=== PATIENT | female | born 1955 | race Two or more races ===

== ENCOUNTER 2017-01-05 07:05 | Emergency (ER) | payer BC ==
[2017-01-05 07:11] VITALS: BMI 25.4
--- NOTE | 2017-01-05 07:37 | PDOC ---
History of Present Illness - General Chief Complaint: Allergic Reaction Stated Complaint: BODY RASH Time Seen by Provider: 01/05/17 07:31 History Source: Patient - History of Present Illness Initial Comments: 01/05/17 08:23 CC: Acute onset of rash Patient is a 61 y.o. female with a PMH of HTN and NIDDM who presents to our ED this morning c/o a full body rash that started yesterday evening. Patient states she ate 3 cookies from a friend and noticed a rash on her arm within 30 minutes. Patient states the rash spread to her chest, other arm and lower extremities. Patient c/o of associated pruritus but no shortness of breath or associated pain. Surgical Hx: none PMD: Dr. Kirsten THOMPSON Social: (-) nicotine, (+) alcohol: 1-2 mixed alcoholic drinks/monthly, (-) marijuana/cocaine/heroin Past History - Past Medical History Allergies/Adverse Reactions: Allergies Allergy/AdvReac Type Severity Reaction Status Date / Time No Known Allergies Allergy Verified 01/05/17 07:10 Home Medications: Ambulatory Orders Diphenhydramine HCl [Benadryl -] 25 mg PO Q6H #28 capsule 01/05/17 Epinephrine (Epi-Pen 0.3MG) [Epipen 0.3MG -] 0.3 mg IM ASDIR #2 pens 01/05/17 Diabetes: Yes HTN: Yes - Suicide/Smoking/Psychosocial Hx Smoking History: Never smoked Information on smoking cessation initiated: No Hx Alcohol Use: No Drug/Substance Use Hx: No Substance Use Type: None Review of Systems - Review of Systems Constitutional: No: Chills, Fever HEENTM: No: Blurred Vision, Double Vision, Tinnitus, Throat Swelling Respiratory: No: Cough, Shortness of Breath Cardiac (ROS): No: Chest Pain, Palpitations ABD/GI: No: Constipated, Diarrhea, Nausea, Vomiting : No: Burning, Dysuria, Frequency Integumentary: Yes: Pruritus, Rash Neurological: No: Headache, Tingling Psychiatric: No: Anxiety, Depression All Other Systems: Reviewed and Negative *Physical Exam - Vital Signs Last Vital Signs Temp Pulse Resp BP Pulse Ox 97.7 F 83 19 157/103 99 01/05/17 07:08 01/05/17 07:08 01/05/17 07:08 01/05/17 07:08 01/05/17 07:08 - Physical Exam General Appearance: Yes: Nourished, Appropriately Dressed HEENT: positive: EOMI Neck: positive: Trachea midline Respiratory/Chest: positive: Lungs Clear, Normal Breath Sounds Cardiovascular: positive: Regular Rhythm, Regular Rate, S1, S2 Integumentary: positive: Other (0.25-0.5 cm macular papular rash on B/L LE, UE, chest, back and buttocks; no palm/sole involvement) Neurologic: positive: Fully Oriented, Alert Medical Decision Making - Medical Decision Making 01/05/17 08:30 Patient is a 61 y.o. female who presents with a full body rash (palm and sole sparing) with associated puritius which started shortly after food ingestion. PLAN: 1. IV Benadryl Patient's rash improved considerably following administration of IV Benadryl. Patient discharged with follow up with Dr. Leo Bradshaw (chief security and safety officer) as well we a prescription for Benadryl and an Epinephrine pen (PRN for dyspnea/throat swelling). As patient is NIDDM, a decision was made to withhold any steroid treatment at this time. Patient counseled to return to ED within 2-3 days if symptoms do not completely resolve with PO Benadryl. *DC/Admit/Observation/Transfer Diagnosis at time of Disposition: Allergy - Discharge Dispostion Disposition: HOME Condition at time of disposition: Good Admit: No - Prescriptions Prescriptions: Diphenhydramine HCl [Benadryl -] 25 mg PO Q6H #28 capsule Epinephrine (Epi-Pen 0.3MG) [Epipen 0.3MG -] 0.3 mg IM ASDIR #2 pens - Referrals Referrals: Leo Curtis [Primary Care Provider] - Leo Bradshaw MD [Staff Physician] - - Patient Instructions Printed Discharge Instructions: DI for General Allergic Reactions Additional Instructions: You were evaluated and treated today for an allergic reaction. Your discharge instructions are as follows: (1) Please take Benadryl every 4 hours as needed. Should your rash not get better or your itching return in 2-3 days, please return to the Emergency Department for further evaluation. (2) In the unlikely case you become short of breath or feel as if your throat is swelling please use the Epinephrine pen immediately. Please carry the pen with you until your symptoms completely resolve. (3) Referral information has been provided for Dr. Leo Bradshaw, an chief security and safety officer, please make an appointment for full evaluation within 1-2 weeks
[2017-01-05] MEDS ORDERED: diphenhydrAMINE HCL 12.5 MG/5 ML UNIT-DOSE CUPS PO ONE (07:44)
--- NOTE | 2017-01-05 08:31 | PDOC ---
Attending Attestation - Resident Resident Name: CarlottaMarli - ED Attending Attestation I have performed the following: I have examined & evaluated the patient, The case was reviewed & discussed with the resident, I agree w/resident's findings & plan, Exceptions are as noted - HPI HPI: 01/05/17 08:28 61-year-old female with no past medical history of HTN, DM presents with diffuse macular papular rash. Denies other symptoms. Denies chest pain or shortness of breath or facial swelling or throat swelling. Denies difficulty breathing. Patient noted it earlier this morning. She reports she ate a cookie last night but does not know the contents of it. She incidentally notes that 8 days ago she had a flu and pneumonia vaccine but had no symptoms since then. Came into the ED for further evaluation. Patient is ready given Benadryl prior to my evaluation. - Physicial Exam PE: 01/05/17 08:30 GENERAL: Awake, alert, and fully oriented, in no acute distress. HEAD: No signs of trauma EYES: PERRLA, EOMI, sclera anicteric, conjunctiva clear ENT: Auricles normal inspection, hearing grossly normal, nares patent, oropharynx clear without exudates. NECK: Normal ROM, supple, no lymphadenopathy, JVD, or masses LUNGS: Breath sounds equal, clear to auscultation bilaterally. No wheezes, and no crackles HEART: Regular rate and rhythm, normal S1 and S2, no murmurs, rubs or gallops ABDOMEN: Soft, nontender, normoactive bowel sounds. No guarding, no rebound. No masses EXTREMITIES: Normal range of motion, no edema. No clubbing or cyanosis. No cords, erythema, or tenderness NEUROLOGICAL: Cranial nerves II through XII grossly intact. Normal speech, normal gait SKIN:Diffuse macular papular rash that is improving. - Medical Decision Making 01/05/17 08:30 Vital Signs Temp Pulse Resp BP Pulse Ox 97.7 F 83 19 157/103 99 01/05/17 07:08 01/05/17 07:08 01/05/17 07:08 01/05/17 07:08 01/05/17 07:08 This rash is likely secondary to ALLERGIES. No signs of anaphylaxis. After discussion with the patient, given the side effects of this prednisone and the elevation in glucose, we'll defer on prednisone. I checked patient that if the rash continues to persist for the next 24-48 hours that she should return for prednisone. We'll write a prescription for Benadryl and EpiPen. We'll refer to an oil drilling engineer.
[2017-01-05 08:57] VITALS: BP 147/87; PULSE 78; TEMP 98.6
== END 2017-01-05 08:57 | disposition home or self-care (01) ==
LOC: JER 07:05
PROC: 3E033GC Introduction of Other Therapeutic Substance into Peripheral Vein, Percutaneous Approach (ICD-10-PCS; principal; 2017-01-05)
DX: L27.2 Dermatitis due to ingested food (principal); I10 Essential (primary) hypertension; E11.9 Type 2 diabetes mellitus without complications; Z79.84 Long term (current) use of oral hypoglycemic drugs
CPT/HCPCS: 99282-25

== ENCOUNTER 2017-01-08 00:12 | Emergency (ER) | payer BC ==
[2017-01-08 00:24] VITALS: BP 154/103; PULSE 96; TEMP 98; BMI 25.4
--- NOTE | 2017-01-08 00:44 | PDOC ---
History of Present Illness - General History Source: Patient Exam Limitations: No Limitations - History of Present Illness Initial Comments: 01/08/17 01:14 The patient is a 61-year-old female with a past medical history of HTN, DM who presents to the ED with Maculopapular rashes generalized all over the body for four days. Patient complains of itching secondary to the rashes. Patient was seen and discharged 3 days ago for same issue, discharged with benadryl and epipen, but with no alleviation. Patient states she used hair coloring about a week ago. Patient denies any other symptoms and is healthy. <Dallas Evans - Last Filed: 01/08/17 01:14> <Meme Castillo - Last Filed: 01/08/17 01:24> - General Chief Complaint: Rash Stated Complaint: RASH Time Seen by Provider: 01/08/17 00:42 Past History <Dallas Evans - Last Filed: 01/08/17 01:14> - Past Medical History Diabetes: Yes HTN: Yes - Suicide/Smoking/Psychosocial Hx Smoking History: Never smoked Hx Alcohol Use: No Drug/Substance Use Hx: No Substance Use Type: None <Meme Castillo - Last Filed: 01/08/17 01:24> - Past Medical History Allergies/Adverse Reactions: Allergies Allergy/AdvReac Type Severity Reaction Status Date / Time No Known Allergies Allergy Verified 01/08/17 00:20 Home Medications: Ambulatory Orders Diphenhydramine HCl [Benadryl -] 25 mg PO Q6H #28 capsule 01/05/17 Epinephrine (Epi-Pen 0.3MG) [Epipen 0.3MG -] 0.3 mg IM ASDIR #2 pens 01/05/17 Review of Systems - Review of Systems Able to Perform ROS?: Yes Comments:: 01/08/17 01:14 GENERAL/CONSTITUTIONAL: No fever or chills. No weakness. HEAD, EYES, EARS, NOSE AND THROAT: No change in vision. No ear pain or discharge. No sore throat. CARDIOVASCULAR: No chest pain or shortness of breath. RESPIRATORY: No cough, wheezing, or hemoptysis. GASTROINTESTINAL: No nausea, vomiting, diarrhea or constipation. GENITOURINARY: No dysuria, frequency, or change in urination. MUSCULOSKELETAL: No joint or muscle swelling or pain. No neck or back pain. SKIN: + maculopapular rashes throughout the whole body. + itching. NEUROLOGIC: No headache, vertigo, loss of consciousness, or change in strength/ sensation. ENDOCRINE: No increased thirst. No abnormal weight change. HEMATOLOGIC/LYMPHATIC: No anemia, easy bleeding, or history of blood clots. ALLERGIC/IMMUNOLOGIC: No hives or skin allergy. <Dallas Evans - Last Filed: 01/08/17 01:14> *Physical Exam - Vital Signs Last Vital Signs Temp Pulse Resp BP Pulse Ox 98 F 96 H 18 154/103 98 01/08/17 00:17 01/08/17 00:17 01/08/17 00:17 01/08/17 00:17 01/08/17 00:17 - Physical Exam Comments: 01/08/17 01:15 GENERAL: Awake, alert, and fully oriented, in no acute distress HEAD: No signs of trauma EYES: PERRLA, EOMI, sclera anicteric, conjunctiva clear ENT: Auricles normal inspection, hearing grossly normal, nares patent, oropharynx clear without exudates. Moist mucosa NECK: Normal ROM, supple, no lymphadenopathy, JVD, or masses LUNGS: Breath sounds equal, clear to auscultation bilaterally. No wheezes, and no crackles HEART: Regular rate and rhythm, normal S1 and S2, no murmurs, rubs or gallops ABDOMEN: Soft, nontender, normoactive bowel sounds. No guarding, no rebound. No masses EXTREMITIES: Normal range of motion, no edema. No clubbing or cyanosis. No cords, erythema, or tenderness NEUROLOGICAL: Cranial nerves II through XII grossly intact. Normal speech, normal gait SKIN: Irritant contact dermatitis all over entire body. <Dallas Evans - Last Filed: 01/08/17 01:14> - Vital Signs Last Vital Signs Temp Pulse Resp BP Pulse Ox 98 F 96 H 18 154/103 98 01/08/17 00:17 01/08/17 00:17 01/08/17 00:17 01/08/17 00:17 01/08/17 00:17 <Meme Castillo - Last Filed: 01/08/17 01:24> Medical Decision Making - Medical Decision Making 01/08/17 01:22 Pt comes with chemical irritative contact dermatitis - likely due to her red hair dye. SHe was here 3 days ago and treated with benadryl and given an epipen. Pt has DM and she refused prednisone. Today she is back because it is still itchy. No SOB and no throat swelling. Only contact dermatitis. Getting better on legs. Still severe on the upper extremities and trunk. Pt will be treated with a dose of dexamethasone. She is refusing to take prednisone at home. Benadry for the home. Stop all chemical soaps and dyes. FOllow with port cdl a driver and PMD. Calamine lotion. <Meme Castillo - Last Filed: 01/08/17 01:24> *DC/Admit/Observation/Transfer - Attestations Scribe Attestion: 01/08/17 01:17 Documentation prepared by Dallas Evans, acting as medical reception for Meme Castillo MD. <Dallas Evans - Last Filed: 01/08/17 01:14> - Discharge Dispostion Admit: No <Meme Castillo - Last Filed: 01/08/17 01:24> Diagnosis at time of Disposition: Chemical induced allergic contact dermatitis - Discharge Dispostion Disposition: HOME Condition at time of disposition: Stable - Referrals Referrals: Leo Lunsford MD, MD [Primary Care Provider] - - Patient Instructions Printed Discharge Instructions: DI for Contact Dermatitis
[2017-01-08] MEDS ORDERED: DEXAMETHASONE LIQUID 0.5 MG/5 ML 240 ML BULK BOTTLE PO ONE (01:11)
[2017-01-08] MEDS ORDERED: diphenhydrAMINE HCL 25 MG CAPSULE (FP) PO ONE ×2 (01:11→01:19)
== END 2017-01-08 01:31 | disposition home or self-care (01) ==
LOC: JER 00:12
DX: L23.5 Allergic contact dermatitis due to other chemical products (principal); I10 Essential (primary) hypertension; E11.9 Type 2 diabetes mellitus without complications
CPT/HCPCS: 99281-25

== ENCOUNTER 2023-02-19 21:01 | Emergency (ER) | payer OTHER, BC ==
[2023-02-19 21:08] VITALS: PULSE 89; RESP 18; TEMP 98.4; BMI 25.6
[2023-02-19 22:29] LABS: BASO % 0.7 % (0-2.0); HEMATOCRIT 39.3 % (32.4-45.2); HEMOGLOBIN 12.8 GM/dL (10.7-15.3); LYMPH % 20.4 % (8-40); MCHC 32.6 g/dl (32.0-36.0); MONO % 5.9 % (3.8-10.2); PLATELET COUNT 247 10^3/uL (134-434); RBC 4.57 M/mm3 (3.60-5.2); RDW 14.9 % (11.6-15.6)
[2023-02-19 22:45] LABS: POTASSIUM 4.7 mmol/L (3.5-5.1)
[2023-02-19 22:48] LABS: ALBUMIN 3.8 g/dl (3.4-5.0); BLOOD UREA NITROGEN 27.2 mg/dL (7-18)
[2023-02-19 22:51] LABS: CREATININE 1.3 mg/dL (0.55-1.3)
[2023-02-19 22:52] LABS: BILIRUBIN,TOTAL 0.3 mg/dL (0.2-1); TOT PROT 8.1 g/dl (6.4-8.2)
[2023-02-20 00:42] VITALS: BP 158/88
== END 2023-02-20 00:42 | disposition home or self-care (01) ==
LOC: JER 21:01
DX: I10 Essential (primary) hypertension (principal); R07.89 Other chest pain
CPT/HCPCS: 36415; 71045-TC-FY; 80053; 84484; 85025; 93005; 93010; 99285-25